=== PATIENT | female | born 1955 | race Caucasian/White ===

== ENCOUNTER 2017-05-27 09:34 | Inpatient (IN) ==
--- NOTE | 2017-05-27 11:12 | EKG Report ---
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
[2017-05-27 11:18] LABS: Basophils % 0.3 % (0.0-0.8); Eosinophils % 0.2 % (0.00-10.9); Hematocrit 41.9 VOL% (35.7-47.0); Hemoglobin 14.2 GM/DL (12.0-16.0); Immature Granulocytes % 0.4 %; Immature Granulocytes Absolute 0.05 #; Lymphocytes # 2.1 10*3/uL (1.4-4.0); Mean Corpuscular HGB Conc 33.9 GM/DL (32-36); Mean Corpuscular Hemoglobin 30 PG (27-34); Mean Corpuscular Volume 87.7 FL (87-102); Mean Platelet Volume 9.3 FL (9.6-12.0); Monocytes # 0.7 10*3/uL (0.11-0.8); Monocytes % 5.6 % (1.7-12.7); Neutrophils # 10.3 10*3/uL (1.4-7.4); Neutrophils % 77.5 % (38.7-73.9); Platelet Count 314 T/CUMM (130-400); Red Blood Count 4.78 MC/CUMM (3.8-5.5); Red Cell Distribution Width 14.3 % (9.3-17.3); White Blood Count 13.2 T/CUMM (4-12)
[2017-05-27 11:24] LABS: PT Patient Result 10.7 SECS; Partial Thromboplastin Time 28.7 SECS (0-40)
[2017-05-27 11:36] LABS: Alanine Aminotransferase 30 U/L (13-56); Alkaline Phosphatase 83 U/L (45-117); Amylase 39 U/L (25-115); Aspartate Amino Transferase 9 U/L (0-37); Blood Urea Nitrogen 8 MG/DL (7-18); Calcium 9.6 MG/DL (8.5-10.1); Glucose 165 MG/DL (74-106); Osmolality,Calculated 271.1 MOS/KG (273-304); Potassium 3.6 MMOL/L (3.5-5.1); Sodium 135 MMOL/L (136-145); Total Protein 7.5 G/DL (6.4-8.3); Troponin I Only < 0.015 NG/ML (0.00-0.045)
[2017-05-27] MEDS ORDERED: MORPHINE 2 MG/1 ML SYRINGE IV STA ×2 (12:01→12:49)
[2017-05-27] MEDS ORDERED: ONDANSETRON 4 MG/2 ML VIAL IV STA (12:01)
--- NOTE | 2017-05-27 12:01 | XRay Report ---
Portable chest. Indication: Chest pain. Comparison: December 12, 2009. The heart and mediastinal contours are unremarkable. The pulmonary vasculature is normal. There is no consolidation, pneumothorax, or pleural effusion. The osseous structures are unremarkable. Impression: No abnormality is seen. PROCEDURE INTERPRETED AT [facility] DEPARTMENT OF RADIOLOGY Final Report Signed by: Dr. Deja Jean Baptiste
--- NOTE | 2017-05-27 12:02 | Ultrasound Report ---
Exam: US gallbladder Date: 05/27/2017 11:08 AM Comparison: None Indication: Right upper quadrant pain Technique:[Multiple transabdominal real-time scans were obtained of the right upper quadrant. Color-flow scans obtained. Ultrasound images were captured and stored.] Findings: There are multiple hyperechoic foci in the gallbladder with posterior acoustical shadowing. The wall of gallbladder measures 2.2 mm with minimal pericholecystic fluid. CBD is normal in size measuring 2.3 mm. Minimal elongation of the right lobe of the liver with no masses. Right kidney measures 95 mm length with no mass or hydronephrosis. The visualized pancreas, aorta, and IVC have an unremarkable appearance with color flow documented in the IVC. The aortic bifurcation is obscured by bowel gas. Impression: Cholelithiasis. Minimal pericholecystic fluid which can be seen with acute cholecystitis. Biliary scan with ejection fraction may be helpful for further evaluation. Minimal elongation of the right lobe of the liver. PROCEDURE INTERPRETED AT [facility] DEPARTMENT OF RADIOLOGY Final Report Signed by: Dr. Marion Damon
[2017-05-27] MEDS ORDERED: ONDANSETRON 4 MG/2 ML VIAL ONE (12:04)
[2017-05-27] MEDS ORDERED: MORPHINE 2 MG/1 ML SYRINGE ONE ×2 (12:04→12:53)
--- NOTE | 2017-05-27 12:15 | Emergency Department Note ---
Arrival - Arrival Chief Complaint: Chest Pain Stated Complaint: chest pains, n/v ED Nursing Triage Note: c/o having nausea and chest pain since saturday., + coughing, states the pain is radiating to the back area., patient points to epigatric area., denies having SOB., states the pain is dull in nature., EKG obtained at time of triage, Mode of Arrival: Ambulatory Limitations: No Limitations Source: Patient, RN Notes Reviewed Time Seen by Provider: 05/27/17 10:34 - History of Present Illness HPI Narrative: The patient complains of dull substernal chest pain radiating into the mid back since yesterday. She says it has been constant. She had some vomiting 2 nights ago, none since. She has been nauseated today. The pain is made worse by change in position and cough. It is sometimes relieved by lying down. She has not had similar symptoms in the past. She denies fever, cough, rhinorrhea, sore throat or other recent illness. She denies any history of hypertension, diabetes, high cholesterol or heart disease. She is not a smoker and has no family history of coronary disease. Allergies/Adverse Reactions: Allergies Allergy/AdvReac Type Severity Reaction Status Date / Time aspirin Allergy HIVES Verified 05/27/17 09:49 Penicillins Allergy HIVES Verified 05/27/17 09:49 Home Medications: Home Medications Medication Instructions Recorded Confirmed Type No Known Home Medications [No 05/27/17 05/27/17 History Known Home Medications] Review of System - Review of System 12 point system: reviewed and no additional remarkable complaints except as stated - Review of System Constitutional: Absent: fever Head/Ears/Nose/Throat: Absent: nasal drainage, sore throat Respiratory: Absent: cough, respiratory distress Cardiovascular: Present: chest pain. Absent: palpitations, dyspnea on exertion , orthopnea, edema, syncope Gastrointestinal: Present: nausea, vomiting. Absent: abdominal pain, diarrhea, constipation Musculoskeletal: Present: back pain. Absent: arm pain, neck pain Medical,Surgical,& Family Hx - Medical History Medical History: noncontributory - Surgical History Surgical History: noncontributory - Family History Family History: noncontributory - Social History Smoking Status: Never smoker Frequency of Alcohol Use: None Type of Drug Use: None Exam Physical Examination: GENERAL: Alert. No acute distress. HEENT: Normocephalic and atraumatic. There is no nasal drainage. No pharyngeal erythema or exudate. NECK: Normal inspection. Supple. No lymphadenopathy or meningismus. LUNGS: No respiratory distress. Clear to auscultation bilaterally, no wheezes, rales or rhonchi. HEART: Regular rate and rhythm. Chest: Nontender. ABDOMEN: Soft, nondistended with normal bowel sounds. Moderate right upper quadrant tenderness without guarding or rebound. BACK: Normal inspection. SKIN: Color normal. Warm and dry. EXTREMITIES: Nontender. Normal range of motion. No pedal edema. NEUROLOGICAL/PSYCHIATRIC: Alert and oriented -3 with normal mood and affect. Cranial nerves normal. No motor or sensory deficit. Vital Signs: Vital Signs Temperature 98.4 F 05/27/17 10:53 Pulse Rate 78 05/27/17 10:53 Respiratory Rate 16 05/27/17 10:53 Blood Pressure 147/78 05/27/17 10:53 O2 Sat by Pulse Oximetry 100 05/27/17 09:44 Course - Reevaluation(s) Reevaluation #1: Patient has remained stable in the ER. Her cardiac workup is completely negative and she has no risk factors. Her gallbladder ultrasound shows cholelithiasis with some pericholecystic fluid suggesting cholecystitis. I discussed the patient with Dr. Leblanc who will come to the ER to evaluate the patient. Time: 12:18 Results - Labs CBC & BMP: 05/27/17 10:36 05/27/17 10:36 Lab Results: I have reviewed the patients labs Labs: Laboratory Tests 05/27/17 05/27/17 10:36 10:36 INR 1.0 Total Bilirubin 0.90 AST 9 ALT 30 Alkaline Phosphatase 83 Total Creatine Kinase 58 CK-MB (CK-2) < 1.0 Troponin I < 0.015 Amylase 39 Lipase 106.0 - Impressions Chest x-ray shows no acute abnormality. Gallbladder ultrasound shows: Cholelithiasis. Minimal pericholecystic fluid which can be seen with acute cholecystitis. Biliary scan with ejection fraction may be helpful for further evaluation. Minimal elongation of the right lobe of the liver. EKG shows a sinus rhythm with occasional PAC. Disposition Clinical Impression: Cholecystitis, Cholelithiasis Case discussed with: patient, patient's family Disposition: Still a Patient Condition: Stable Time of Disposition: 12:22
[2017-05-27 12:21] LABS: Apearance,Urine CLEAR (Clear); Bacteria,Urine Occasional /HPF (Few); Bilirubin,Urine Negative (Negative); Blood, Urine Small mg/dL (Negative); Glucose,Urine (UA) Negative (Negative); Hyaline Casts,Urine 1 /LPF (0-3); Ketones,Urine Negative (Negative); Mucus,Urine Occasional /LPF (Occasional); Nitrite,Urine Negative (Negative); Protein,Urine Negative; RBC,Urine 2 /HPF (0-4); Squamous Epithelial Cell,Urine Occasional /HPF (0-10); Urine Color Yellow (Yellow); Urine Specific Gravity 1.012 (1.001-1.035); Urine Urobilinogen < 2.0 EU/DL (0.2-1.0); WBC,Urine 3 /HPF (0-6)
[2017-05-27] MEDS ORDERED: SODIUM CHLORIDE 0.9% 1,000 ML IV STA (12:42)
[2017-05-27] MEDS: LACTATED RINGERS 1,000 ML IV SCH ×2 (12:52→21:36)
[2017-05-27] MEDS ORDERED: ONDANSETRON 4 MG/2 ML VIAL IV PRN (13:17)
[2017-05-27] MEDS ORDERED: ACETAMINOPHEN 325 MG TABLET PO PRN (13:17)
[2017-05-27] MEDS ORDERED: HYDROmorphone 2 MG/1 ML VIAL IV PRN (13:25)
[2017-05-27] MEDS ORDERED: ALUMINUM/MAGNES/SIMETH MAX STR 30 ML UDCUP PO PRN (13:25)
[2017-05-27] MEDS ORDERED: BISACODYL 5 MG TABLET PO PRN (13:25)
[2017-05-27] MEDS ORDERED: CLINDAMYCIN INJ 900 MG in PREMIX 1 EACH IV ONE (13:31)
--- NOTE | 2017-05-27 13:36 | General Surg History&Physical ---
Assessment and Plan - Time spent with patient Time spent with patient: Greater than 30 minutes (1) Cholecystitis Status: Acute Assessment and plan: Impression: Cholecystitis cholelithiasis. With epigastric pain Plan: IV fluids and IV antibiotics and surgery in the morning Current Visit: Yes History of Present Illness Chief complaint: Abdominal pain and chest discomfort possibly secondary to gallbladder disea History of present illness: Ms. Brooks is a 61 year old female white who had the onset of abdominal pain and midepigastric discomfort on Saturday after eating some sausages. This persisted through the weekend seem to get a little bit worse today which came in still complaining of some substernal epigastric discomfort but it radiated to her back. EKG and chest x-rays look okay and abdomen ultrasound gallbladder shows multiple stones with some pericolic fluid at this time. It appears that she has gallbladder disease but her liver function studies are normal at this time. Going to go ahead and admit her and set her up for surgery tomorrow see about getting her gallbladder out at this time. Put her in on some IV fluids and antibiotics at this time. Home Medications Medication Instructions Recorded Confirmed Type No Known Home Medications [No 05/27/17 05/27/17 History Known Home Medications] Allergies Allergy/AdvReac Type Severity Reaction Status Date / Time aspirin Allergy HIVES Verified 05/27/17 09:49 Penicillins Allergy HIVES Verified 05/27/17 09:49 Medical,Surgical,& Family Hx - Surgical History Reproductive Surgeries: Surgical HX of;: Hysterectomy - Social History Smoking Status: Never smoker Frequency of Alcohol Use: None Type of Drug Use: None Functional capacity: independent ambulation Exam - Constitutional Vitals: Period Temp Pulse Resp BP Sys/Dumont Pulse Ox Last 24 Hr 98.4 F-98.4 F 78-78 16-16 147-147/78-78 100 General appearance: mild distress - Head Head exam: Present: normal inspection - ENT ENT exam: Present: normal exam - Neck Neck exam: Present: normal inspection - Respiratory Respiratory exam: Present: clear to auscultation bilaterally, rales - Cardiovascular Cardiovascular exam: Present: RRR - GI/Abdominal GI/Abdominal exam: Present: guarding, hypoactive bowel sounds, tenderness ( Right upper quadrant), soft. Absent: distended, mass - Extremities Exam Extremities exam: Present: normal inspection - Back Exam Back exam: Present: normal inspection - Neurological Exam Neurological exam: Present: alert, oriented X3, CN II-XII intact - Skin Skin exam: Present: normal color, warm, dry 12 point system: reviewed and no additional remarkable complaints except as stated Quality Measures - VTE Contraindication to Pharmacological VTE Prophylaxis: Clinical assessment deems Pt at low risk, no prophalaxis needed Results - Labs CBC & BMP: 05/27/17 10:36 05/27/17 10:36 Lab Results: I have reviewed the past 24 hour labs - Diagnostic Findings Procedure: Ultrasound: report reviewed by me (Gallstones)
[2017-05-27] MEDS: DEXTROSE 5% NACL 0.45% 1,000 ML IV SCH (17:30)
[2017-05-27] MEDS: CIPROFLOXACIN INJ 400 MG in PREMIX 1 EACH IV SCH (17:36)
[2017-05-27] MEDS: DOCUSATE SODIUM 100 MG CAPSULE PO SCH (21:33)
[2017-05-27] MEDS ORDERED: MORPHINE 2 MG/1 ML SYRINGE IV PRN (21:52)
[2017-05-28] MEDS: DEXTROSE 5% NACL 0.45% 1,000 ML IV SCH ×4 (01:13→23:14)
[2017-05-28] MEDS: CIPROFLOXACIN INJ 400 MG in PREMIX 1 EACH IV SCH ×2 (01:47→15:15)
[2017-05-28 07:25] LABS: Basophils % 0.2 % (0.0-0.8); Eosinophils # 0.1 10*3/uL (0.0-0.87); Hemoglobin 12.6 GM/DL (12.0-16.0); Immature Granulocytes % 0.3 %; Immature Granulocytes Absolute 0.03 #; Lymphocytes # 2.1 10*3/uL (1.4-4.0); Mean Corpuscular HGB Conc 34.1 GM/DL (32-36); Mean Corpuscular Hemoglobin 30 PG (27-34); Mean Corpuscular Volume 88.5 FL (87-102); Mean Platelet Volume 9.5 FL (9.6-12.0); Monocytes # 0.7 10*3/uL (0.11-0.8); Monocytes % 6.8 % (1.7-12.7); Neutrophils # 6.6 10*3/uL (1.4-7.4); Neutrophils % 69.7 % (38.7-73.9); Platelet Count 270 T/CUMM (130-400); Red Blood Count 4.18 MC/CUMM (3.8-5.5); Red Cell Distribution Width 14.5 % (9.3-17.3); White Blood Count 9.5 T/CUMM (4-12)
[2017-05-28 07:34] LABS: PT Patient Result 10.8 SECS; Partial Thromboplastin Time 27.8 SECS (0-40)
[2017-05-28 07:50] LABS: Albumin 3.3 G/DL (3.4-5.0); Bilirubin,Total 1.2 MG/DL (0.2-1.0); Calcium 9.1 MG/DL (8.5-10.1); Osmolality,Calculated 275.7 MOS/KG (273-304); Total Protein 6.3 G/DL (6.4-8.3)
[2017-05-28] MEDS ORDERED: CLINDAMYCIN INJ 900 MG in PREMIX 1 EACH IV ONE (08:00)
[2017-05-28] MEDS: PANTOPRAZOLE 40 MG TABLET PO SCH (08:19)
[2017-05-28] MEDS: DOCUSATE SODIUM 100 MG CAPSULE PO SCH ×2 (08:19→21:48)
[2017-05-28] MEDS ORDERED: LIDOCAINE 1%/EPI INJ 20 ML VIAL ONE (08:20)
[2017-05-28] MEDS ORDERED: BUPIVACAINE 0.25% 50 ML VIAL ONE (08:20)
[2017-05-28] MEDS ORDERED: NEOSTIGMINE 10 MG/10 ML VIAL ONE (08:32)
[2017-05-28] MEDS ORDERED: KETOROLAC 30 MG/1 ML VIAL ONE ×2 (08:32→11:14)
[2017-05-28] MEDS ORDERED: PHENYLEPHRINE 50 MG/5 ML VIAL ONE (08:32)
[2017-05-28] MEDS ORDERED: PROMETHAZINE 25 MG/1 ML VIAL ONE (08:32)
[2017-05-28] MEDS ORDERED: GLYCOPYRROLATE 0.4 MG/2 ML VIAL ONE ×2 (08:32→11:14)
[2017-05-28] MEDS ORDERED: ONDANSETRON 4 MG/2 ML VIAL ONE (08:32)
[2017-05-28] MEDS ORDERED: PROPOFOL 200 MG/20 ML VIAL IV ONE (08:32)
[2017-05-28] MEDS ORDERED: ROCURONIUM 100 MG/10 ML VIAL IV ONE ×2 (08:32→11:15)
[2017-05-28] MEDS ORDERED: LIDOCAINE 100 MG/5 ML SYRINGE ONE (08:32)
[2017-05-28] MEDS ORDERED: TISSUE ADHESIVE 1 EACH APPLICATOR TOP ONE (09:03)
--- NOTE | 2017-05-28 11:09 | Operative Note ---
Date of procedure: 05/28/17 Pre-op diagnosis: Acute cholecystitis cholelithiasis. Post-op diagnosis: same Procedure: Operative note: Preoperative diagnosis: Cholecystitis cholelithiasis. Postoperative diagnosis: Acute cholecystitis cholelithiasis. Procedure: Laparoscopic cholecystectomy with intraoperative cholangiogram. Surgeon Dr. Leblanc Radio Script Writer Allison Kerns, ONCOLOGY REP SPECIALIST ACNP Anesthesia General tracheal with local Brief history: 61-year-old white female had the onset of abdominal pain on Saturday is got progressively worse finally came to the emergency room yesterday. She was found to have multiple stones in gallbladder gallbladder wall thickening but no elevated liver function studies. We put her in her IV antibiotics like to bring her surgery today. Procedure: With patient supine position prepped and draped in sterile fashion timeout and antibiotics completed approaches area of the umbilicus. She got a short wasted even though she has had a hysterectomy like to go below the umbilicus. Made an incision through the skin subtenons tissue carefully dissected down to the level of the fascia. Identified size the fascia with the knife calf dissected to identify the peritoneum and opened it with direct vision. Easily entered the peritoneal cavity without difficulty and then instilled 3 L of CO2. The trocar in place then we went ahead and put our scope and begin to look around this time. See the gallbladder appeared to be thickened gradients at this time with a omentum stuck to the underside of it. I then inserted a 5 mm trocar at the anterior axillary midclavicular line and another 11 mm trocar and at the midepigastric port all under direct vision. Once they were in position at this point time put the patient upright tilted left side position. At that point attempted to grasp the gallbladder and it was very thickened and I could not quite get a grasp of it. Got a whole piece of a small portion of it at the fundus and then was able pull some this omentum free. Unfortunately the grasped on the fundus came off and I could never get a good grasp again. At that point we took a needle onto the suction put into the gallbladder and sucked out a good bit of fluid. This allowed us to get her grasper own and elevate up the gallbladder. With that under control then I was able to stick to risk the omentum from the underside of the gallbladder down to like to see the infundibulum. I grasped this area and then carried careful dissection. Thickened tissue all in and around this area but I was able to finally identify the cystic duct and isolated from the artery. I then placed a clip on the cystic duct proximally and we made an incision in it. We then placed Cholangiocath and did several x-rays showing wearing the cystic duct upper radicles look normal will radicles look fine with no stones present. At that point I was able to remove the Cholangiocath and then placed 3 clips across the distal part of the cystic duct. Then divided the cystic duct. And we calf dissected out cystic artery and placed 3 clips on it proximally 1 distally and divided it. I next went ahead and begin to take the gallbladder down by incising peritoneal attachments anteriorly and posteriorly but these were very thickened and was very difficult dissection at this point time had to use electrocautery look a little more to counter free it from the underside in order to bring it up and out get it from the liver bed. Once it was completely free we went back and washed irrigated use light cauterization controlling bleeding. A look pretty dry at this point with no unusual bleeding seen. So went ahead and put the gallbladder in the Endo Catch bag and brought out through the umbilical port. Went back in washed again above below the liver look to the liver bed and look pretty dry. At that point elected not to leave a drain. With that I then went ahead and pulled my 5 mm trochars in the epigastric all in direct vision with those bleeding seen. We then pulled the umbilical port. I then went back and closed the fascia of the umbilicus with interrupted 0 Monocryl suture and we closed the subtenons tissue 3-0 Vicryl and we closed the skin running 4-0 Monocryl. Then went to the epigastric port and closed that fascia with interrupted 0 Monocryl suture and closed subtenons tissue after washing with 3-0 Vicryl subcu and closed the skin running 4-0 Monocryl. I went next to the 2 5 mm trocar sites were we closed the subtenons tissue with 3-0 Vicryl and we closed the skin running 4-0 Monocryl. Dermabond was applied and patient taken recovery room. Estimated blood loss 30 cc Sponge count correct 2 Drains none Complications Condition stable satisfactory Anesthesia: GETA, local (0.25% Marcaine with epinephrine mixed [id number] 1% Xylocaine plain) Surgeon / Physician: Dorian Leblanc Radio Script Writer: Allison Kerns Estimated blood loss: other (30 cc) Specimens: other (Gallbladder) Condition: stable Disposition: floor Results - Labs CBC & BMP: 05/28/17 06:27 05/28/17 06:27 Discharge Plan - Discharge Medications No Action No Known Home Medications [No Known Home Medications] - Follow Up or Referral - Forms/Instructions
--- NOTE | 2017-05-28 11:11 | Anesthesia Post-Op ---
Anesthesia Post OP - Post Ansesthetic Evaluation Patient seen in post op: Yes Resp: within normal limits CV: within normal limits Mental: within normal limits Temp: within normal limits [id number]: within normal limits Nausea and Vomiting: within normal limits Pain: within normal limits
[2017-05-28] MEDS ORDERED: MIDAZOLAM 2 MG/2 ML VIAL ONE (11:13)
[2017-05-28] MEDS ORDERED: SEVOFLURANE 1 UNIT/15 MINUTE INH ONE (11:13)
[2017-05-28] MEDS ORDERED: ACETAMINOPHEN 1,000 MG/100 ML VIAL IV ONE (11:14)
[2017-05-28] MEDS ORDERED: fentaNYL 100 MCG/2 ML VIAL ONE ×2 (11:14)
--- NOTE | 2017-05-28 12:04 | Fluoroscopy Report ---
[place] cholangiogram in surgery Indication: Abdominal pain. Cholecystectomy. Comparison: None. Technique: Injection of the cystic duct using intravenous contrast was performed intraoperatively. Multiple fluoroscopic images were then captured and stored. Total fluoroscopy time was 38.3 seconds. Findings: Normal filling of the extrahepatic bile duct and retrograde filling of the intrahepatic bile ducts appears within normal limits. There is no evidence of biliary duct dilatation, choledocholithiasis, or abnormal junction of the biliary and pancreatic systems. Filling of the small bowel appears within normal limits. Impression: 1. No significant abnormality of the biliary system is suggested. 05/28/2017 12:00 PM PROCEDURE INTERPRETED AT [facility] DEPARTMENT OF RADIOLOGY Final Report Signed by: Dr. Flavio De Oliveira
[2017-05-28] MEDS: KETOROLAC 15 MG/1 ML VIAL IV SCH ×3 (13:07→23:22)
[2017-05-28 17:12] LABS: Hematocrit 38.6 VOL% (35.7-47.0); Hemoglobin 12.8 GM/DL (12.0-16.0)
[2017-05-28] MEDS: CLINDAMYCIN INJ 900 MG in PREMIX 1 EACH IV SCH (18:12)
[2017-05-29] MEDS: CLINDAMYCIN INJ 900 MG in PREMIX 1 EACH IV SCH (01:51)
[2017-05-29] MEDS: CIPROFLOXACIN INJ 400 MG in PREMIX 1 EACH IV SCH (02:55)
[2017-05-29] MEDS: KETOROLAC 15 MG/1 ML VIAL IV SCH ×2 (05:17→10:26)
[2017-05-29] MEDS: DEXTROSE 5% NACL 0.45% 1,000 ML IV SCH (05:18)
[2017-05-29 05:54] LABS: Basophils % 0.1 % (0.0-0.8); Eosinophils # 0.1 10*3/uL (0.0-0.87); Eosinophils % 1.9 % (0.00-10.9); Hemoglobin 11.9 GM/DL (12.0-16.0); Immature Granulocytes % 0.4 %; Immature Granulocytes Absolute 0.03 #; Lymphocytes # 1.5 10*3/uL (1.4-4.0); Lymphocytes % 20.2 % (21.3-54.2); Mean Corpuscular Hemoglobin 30 PG (27-34); Mean Corpuscular Volume 88.4 FL (87-102); Mean Platelet Volume 9.5 FL (9.6-12.0); Monocytes # 0.6 10*3/uL (0.11-0.8); Neutrophils # 5.2 10*3/uL (1.4-7.4); Neutrophils % 69.4 % (38.7-73.9); Platelet Count 235 T/CUMM (130-400); Red Blood Count 3.96 MC/CUMM (3.8-5.5); Red Cell Distribution Width 14.5 % (9.3-17.3); White Blood Count 7.5 T/CUMM (4-12)
[2017-05-29 06:43] LABS: Calcium 8.5 MG/DL (8.5-10.1); Osmolality,Calculated 280.3 MOS/KG (273-304); Potassium 3.7 MMOL/L (3.5-5.1)
[2017-05-29] MEDS ORDERED: ENOXAPARIN 40 MG/0.4 ML SYRINGE SUBCUT SCH (07:00)
[2017-05-29 07:37] VITALS: BP 105/52
[2017-05-29] MEDS: PANTOPRAZOLE 40 MG TABLET PO SCH (08:25)
[2017-05-29] MEDS: DOCUSATE SODIUM 100 MG CAPSULE PO SCH (08:25)
--- NOTE | 2017-05-29 08:41 | Discharge Summary ---
Hospital Course - Hospital Course Hospital Course: Discharge summary 07/10/2017 Diagnosis: Acute on chronic cholecystitis with cholelithiasis Brief summary-this 61-year-old white female presented to the emergency room at . A 2 day history of abdominal epigastric chest pain accompanied by nausea with vomiting. She has not had symptoms like this before and when they pain persisted and was accompanied with bouts of nausea and vomiting unrelieved by standard comfort measures, she sought treatment in the ER. Her cardiac workup was completely normal without evidence for AK or other cardiac issues. Her gallbladder ultrasound did show multiple gallstones, with evidence of pericholecystic fluid, suggestive of cholecystitis. Her liver function studies are not elevated. WBC was noted at 13.2. Laparoscopic cholecystectomy was discussed with the patient and her , and she was anxious to proceed with surgery. She was admitted, antibiotics and IV fluids were initiated, and on 05/28 she was taken to the operating room where thickened gallbladder was encountered, with density adhesed omentum and thickened gallbladder wall that did require drainage, but there was no evidence of gangrenous change. Intraoperative cholangiogram showed no retained stones. Postoperatively she had no nausea or vomiting and minimal pain. This morning she is tolerating a regular diet, having minimal pain, she is ambulatory about the room and has good bowel sounds. Her discomfort is minimal and is controlled by p.o. pain medications. Her labs and vital signs are stable and she would like to be discharged home. We will therefore plan to discharge her home today and plan to follow her up in the office in 1-2 weeks for suture removal. Restrictions and limitations were discussed with the patient along with cautions and precautions, as well as wound care. We will plan to have her continue any previous home medications and will leave her a prescription for [place], 5/325mg p.o.#12 as needed for pain. - Time spent with patient Time with patient DS: Less than 30 minutes Diagnosis - Discharge Diagnosis (1) Cholecystitis Status: Acute (2) Cholelithiasis Status: Acute Specialty Discharge - Follow Up or Referrals Follow up with: Dorian Leblanc MD [Physician] - 2 Weeks Discharge Plan - Discharge Data Disposition: Disch To Home/Self Care Condition at Discharge: Stable Discharge Diet: advance to your usual diet Activity: increase activity as tolerated, no lifting Hygiene: may shower Weight Bearing at Discharge: full weight bearing Driving: not for (1 week) Contact your physician if you experience:: fever over 101, Difficulty voiding, Redness or swelling, Nausea/Vomiting, Shortness of breath, Bleeding, pain uncontrolled by pain medications Wound / Dressing Care Instructions: Shower daily with antibacterial soap. Use no ointments, chills, creams, or lotions over the incision. Cover with light Band-Aid or dressing for comfort. - Discharge Medications New HYDROcodone/ACETAMIN 5-325 [[place] 5-325] 1 tablet PO Q6H #12 tablet - Follow Up or Referral - Forms/Instructions Additional Discharge Instructions: Work excuse Exam - Constitutional Vitals: Period Temp Pulse Resp BP Sys/Dumont Pulse Ox Last 24 Hr 97.2 F-98.6 F 63-109 12-20 99-138/48-85 10-100 General appearance: normal weight, no acute distress - Head Head exam: Present: normocephalic - Eye Eye exam: Present: EOMI Pupils: Present: SAGAR - Respiratory Respiratory exam: Present: clear to auscultation bilaterally. Absent: rales, wheezes - Cardiovascular Cardiovascular exam: Present: regular rate and rhythm - GI/Abdominal GI/Abdominal exam: Present: hypoactive bowel sounds, soft, other (Midline and right upper quadrant incisions are clean dry without unusual bruising.). Absent : distended, guarding - Extremities Exam Extremities exam: Present: normal inspection. Absent: calf tenderness, edema - Neurological Exam Neurological exam: Present: alert, oriented X3 - Psychiatric Psychiatric exam: Present: normal affect, normal mood Discharge Results Labs on day of discharge: Labs from last 24 hours 05/29/17 05/29/17 05/28/17 05:27 05:27 16:45 WBC 7.5 RBC 3.96 Hgb 11.9 L 12.8 Hct 35.0 L 38.6 MCV 88.4 MCH 30 MCHC 34.0 RDW 14.5 Plt Count 235 MPV 9.5 L Neut % (Auto) 69.4 Lymph % (Auto) 20.2 L [place] % (Auto) 8.0 Eos % (Auto) 1.9 Baso % (Auto) 0.1 Neut # (Auto) 5.2 Lymph # (Auto) 1.5 [place] # (Auto) 0.6 Eos # (Auto) 0.1 Baso # (Auto) 0.0 Immature Gran % 0.4 Nucleated RBC % 0.0 Immature Gran # 0.03 Nucleated RBCs # 0.00 Immature Plt Fraction 0.0 Sodium 141 Potassium 3.7 Chloride 105 Carbon Dioxide 29 Anion Gap 10.7 BUN 6 L Creatinine 1.00 GFR Calculation 63 BUN/Creatinine Ratio 6.00 Glucose 129 H Calculated Osmolality 280.3 Calcium 8.5 DS: Provider Date of admission: 05/27/17 13:17 Primary care physician: . No PCP Attending physician on admission: Dorian Leblanc MD Consults: 05/27/17 13:33 Consult to Anesthesiology [CONS] Routine Consulting Provider: Reason for Anesthesiology: Pre-op Clearance Discharging clinician: Allison Kerns CNP, R
--- NOTE | 2017-05-29 12:25 | Pathology Report from [facility] ---
[facility] [place] ACCESSION # : [id number] PATIENT NAME : Kassy Brooks ORDERING DR : BELKYS TARANGO MD CLINICAL HX: Cholecystitis POST-OP DX: Same SPECIMEN INFO: Gallbladder GROSS DESCRIPTION: The specimen is received in formalin labeled with the patients name and consists of an intact gallbladder measuring 7.9 x 3.5 cm. The serosa is erythematous, miranda. The wall averages 0.4 cm in thickness. The mucosa is erythematous and ulcerated with hemorrhagic indentation present which is the result of multiple intraluminal faceted yellow-brown stones collectively measuring 5.0 x 3.6 cm. The largest stone measuring up to 0.5 cm. There are stones located within the cystic duct. Firearms Assembly Supervisor sections submitted in one cassette. DIAGNOSIS FOR KASSY BROOKS: GALLBLADDER, CHOLECYSTECTOMY: Acute and chronic cholecystitis; cholelithiasis. COLLECTED DATE: 05/28/2017 [facility] REPORT DATE: 05/29/2017 ELECTRONICALLY SIGNED BY: Silva Vivar M.D. 05/29/2017 - 9:49:56 [facility]ALS[facility]rill
== END 2017-05-29 10:49 | disposition home or self-care (01) | DRG 419 ==
LOC: N.ED 09:34 → N.EDINP 13:17 → N.3E 13:49
PROVIDERS: ADMIT Specialist; ATTEND Specialist
PROC: LAPCHOL (2017-05-28 08:32)